=== PATIENT | female | born 1950 | race Caucasian/White ===

== ENCOUNTER 2016-05-01 17:17 | Emergency (ER) | payer MEDICARE ==
[2016-05-01] MEDS ORDERED: METHYLPRED SOD SUCC 125 MG/2 ML VIAL ONE (17:46)
== END 2016-05-01 18:27 | disposition home or self-care (01) ==
LOC: FASTR 17:17
DX: L23.7 Allergic contact dermatitis due to plants, except food (principal)
CPT/HCPCS: 96372; 99283; J2930

== ENCOUNTER 2016-05-05 09:03 | Emergency (ER) | payer MEDICARE ==
[2016-05-05] MEDS ORDERED: MORPHINE 4 MG/ML SYR ONE (10:48)
[2016-05-05] MEDS ORDERED: PROPARACAINE 0.5% OP SOLN ONE (10:51)
== END 2016-05-05 11:15 | disposition home or self-care (01) ==
LOC: ER 09:03
DX: B02.9 Zoster without complications (principal)
CPT/HCPCS: 96372; 99283; J2270